=== PATIENT | male | born 1995 | race Caucasian/White ===

== ENCOUNTER 2018-05-19 12:04 | Emergency (ER) | payer BC ==
--- NOTE | 2018-05-19 12:39 | EDM.PDOC ---
ED HPI GENERAL MEDICAL PROBLEM - General Chief Complaint: Upper Extremity Injury/Pain Stated Complaint: NUMB/TINGLING LT HAND Time Seen by Provider: 05/19/18 12:19 Source of Information: Reports: Patient History Limitations: Reports: No Limitations - History of Present Illness INITIAL COMMENTS - FREE TEXT/NARRATIVE: History of present illness: [Patient has had 4 days of numbness and tingling to his left index finger and thumb that wakes him up at night. He does repetitive motions with his hands and wrist at work. Trauma. Review of systems: As per history of present illness and below otherwise all systems reviewed and negative. Past medical history: As per history of present illness and as reviewed below otherwise noncontributory. Surgical history: As per history of present illness and as reviewed below otherwise noncontributory. Social history: No reported history of drug or alcohol abuse. Family history: As per history of present illness and as reviewed below otherwise noncontributory. Physical exam: General: Well developed, well nourished in NAD HEENT: Atraumatic, normocephalic, pupils reactive, negative for conjunctival pallor or scleral icterus, mucous membranes moist, throat clear, neck supple, nontender, trachea midline. Lungs: Clear to auscultation, breath sounds equal bilaterally, chest nontender. Heart: S1S2, regular, negative for clicks, rubs, or JVD. Abdomen: NABS, Soft, nondistended, nontender. Negative for masses or hepatosplenomegaly. Negative for costovertebral tenderness. Pelvis: Stable nontender. Genitourinary: Deferred. Rectal: Deferred. Extremities: Hand Neurologically intact, Phalen and Tinel tests are both negative Atraumatic, negative for cords or calf pain. Neurovascular unremarkable. Neuro: Awake, alert, oriented. Cranial nerves II through XII unremarkable. Cerebellum unremarkable. Motor and sensory unremarkable throughout. Exam nonfocal. Skin:warm and dry Diagnostics: None Therapeutics: Cock-up splint ED Course: Unremarkable Impression: carpal tunnel syndrome by history Prescriptions: None Plan: Ibuprofen, ice, wear splint even at night, follow-up with Dr. Berry. Definitive disposition and diagnosis as appropriate pending reevaluation and review of above. Left Hand Pain Score (Numeric/FACES): 5 - Related Data Allergies Allergy/AdvReac Type Severity Reaction Status Date / Time No Known Allergies Allergy Verified 05/19/18 12:21 Home Meds: Home Meds . [No Known Home Meds] 05/19/18 [History] Past Medical History - Past Health History Medical/Surgical History: Denies Medical/Surgical History HEENT History: Reports: None Cardiovascular History: Reports: None Respiratory History: Reports: None Gastrointestinal History: Reports: None Genitourinary History: Reports: None Neurological History: Reports: None Psychiatric History: Reports: None Endocrine/Metabolic History: Reports: None Hematologic History: Reports: None Immunologic History: Reports: None Oncologic (Cancer) History: Reports: None Dermatologic History: Reports: None - Infectious Disease History Infectious Disease History: Reports: None - Past Surgical History Head Surgeries/Procedures: Reports: None Musculoskeletal Surgical History: Reports: Other (See Below) Other Musculoskeletal Surgeries/Procedures:: right elbow surgery in 2000 Social & Family History - Tobacco Use Smoking Status *Q: Never Smoker Second Hand Smoke Exposure: No - Caffeine Use Caffeine Use: Reports: None - Recreational Drug Use Recreational Drug Use: No Review of Systems - Review of Systems Review Of Systems: ROS reveals no pertinent complaints other than HPI. ED EXAM, GENERAL - Physical Exam Exam: See Below (The history of present illness) Course - Vital Signs Last Recorded V/S: Last Vital Signs Temp 97.5 F 05/19/18 12:20 Pulse 76 05/19/18 12:20 Resp 18 05/19/18 12:20 BP 113/68 05/19/18 12:20 Pulse Ox 97 05/19/18 12:20 Departure - Departure Time of Disposition: 12:38 Disposition: Home, Self-Care 01 Condition: Good Clinical Impression: Carpal tunnel syndrome Qualifiers: Laterality: left Qualified Code(s): G56.02 - Carpal tunnel syndrome, left upper limb - Discharge Information *PRESCRIPTION DRUG MONITORING PROGRAM REVIEWED*: No *COPY OF PRESCRIPTION DRUG MONITORING REPORT IN PATIENT PARUL: No Referrals: PCP,None [Primary Care Provider] - Additional Instructions: The following information is given to patients seen in the emergency department who are being discharged to home. This information is to outline your options for follow-up care. We provide all patients seen in our emergency department with a follow-up referral. The need for follow-up, as well as the timing and circumstances, are variable depending upon the specifics of your emergency department visit. If you don't have a primary care physician on staff, we will provide you with a referral. We always advise you to contact your personal physician following an emergency department visit to inform them of the circumstance of the visit and for follow-up with them and/or the need for any referrals to a consulting specialist. The emergency department will also refer you to a specialist when appropriate. This referral assures that you have the opportunity for follow-up care with a specialist. All of these measure are taken in an effort to provide you with optimal care, which includes your follow-up. Under all circumstances we always encourage you to contact your private physician who remains a resource for coordinating your care. When calling for follow-up care, please make the office aware that this follow-up is from your recent emergency room visit. If for any reason you are refused follow-up, please contact the [facility] Emergency Department at and asked to speak to the emergency department charge nurse. Wear splint, ibuprofen, ice as much as possible, follow-up with Dr. Kristi deng if symptoms worsen or change. [facility] - [facility] Professional Building [address] [place] [address], [address] [place] [address]
== END 2018-05-19 12:47 | disposition home or self-care (01) ==
LOC: MW.ED 12:04
DX: G56.02 Carpal tunnel syndrome, left upper limb (principal)
CPT/HCPCS: 99282

== ENCOUNTER 2019-07-05 10:26 | Emergency (ER) | payer BC, OTHER ==
--- NOTE | 2019-07-05 13:00 | EDM.PDOC ---
ED HPI GENERAL MEDICAL PROBLEM - General Chief Complaint: Genitourinary Problem Stated Complaint: GENITAL PAIN SINCE THIS MORNING Time Seen by Provider: 07/05/19 10:30 Source of Information: Reports: Patient History Limitations: Reports: No Limitations - History of Present Illness INITIAL COMMENTS - FREE TEXT/NARRATIVE: This is a 24-year-old male who presents the emergency room with a chief complaint of shoulder pain. Patient states he has swelling and pain in his right testicle. This is an acute incident happened today. Onset: Today Duration: Hour(s): Location: Reports: Other ( testicles) Quality: Reports: Ache Severity: Moderate Improves with: Reports: None Worsens with: Reports: None Associated Symptoms: Reports: No Other Symptoms Scrotum Pain Score (Numeric/FACES): 10 - Related Data Allergies Allergy/AdvReac Type Severity Reaction Status Date / Time No Known Allergies Allergy Verified 07/05/19 10:36 Home Meds: Home Meds Doxycycline [Vibramycin] 100 mg PO BID #20 cap 07/05/19 [Rx] Naproxen [Naprosyn] 500 mg PO Q12HR #14 tab 07/05/19 [Rx] Past Medical History - Past Health History Medical/Surgical History: Denies Medical/Surgical History HEENT History: Reports: None Cardiovascular History: Reports: None Respiratory History: Reports: None Gastrointestinal History: Reports: None Genitourinary History: Reports: None Neurological History: Reports: None Psychiatric History: Reports: None Endocrine/Metabolic History: Reports: None Hematologic History: Reports: None Immunologic History: Reports: None Oncologic (Cancer) History: Reports: None Dermatologic History: Reports: None - Infectious Disease History Infectious Disease History: Reports: None - Past Surgical History Head Surgeries/Procedures: Reports: None Neurological Surgical History: Reports: Lumbar Spine Musculoskeletal Surgical History: Reports: Other (See Below) Other Musculoskeletal Surgeries/Procedures:: right elbow surgery in 2000 Social & Family History - Tobacco Use Smoking Status *Q: Never Smoker - Caffeine Use Caffeine Use: Reports: None - Recreational Drug Use Recreational Drug Use: No ED ROS GENERAL - Review of Systems Review Of Systems: See Below Constitutional: Reports: No Symptoms HEENT: Reports: No Symptoms Respiratory: Reports: No Symptoms Cardiovascular: Reports: No Symptoms Endocrine: Reports: No Symptoms GI/Abdominal: Reports: No Symptoms : Reports: Other (Right testicular pain) Musculoskeletal: Reports: No Symptoms Skin: Reports: No Symptoms Neurological: Reports: No Symptoms Psychiatric: Reports: No Symptoms Hematologic/Lymphatic: Reports: No Symptoms Immunologic: Reports: No Symptoms ED EXAM, RENAL/ - Physical Exam Exam: See Below Exam Limited By: No Limitations General Appearance: Alert, WD/WN, No Apparent Distress Eye Exam: Bilateral Eye: PERRL Ears: Normal External Exam, Normal Canal, Normal TMs Nose: Normal Inspection, Normal Mucosa Throat/Mouth: Normal Inspection Head: Atraumatic, Normocephalic Neck: Normal Inspection, Supple Respiratory/Chest: No Respiratory Distress Cardiovascular: Normal Peripheral Pulses, Regular Rate, Rhythm (Male) Exam: Scrotum Tenderness (R), Testicular Tenderness (R). No: Scrotal Swelling, Suprapubic Fullness, Testicular Mass, Testicular Tenderness (L) Rectal (Males) Exam: Deferred Back Exam: Normal Inspection, Full Range of Motion, CVA Tenderness (R), Paraspinal Tenderness Extremities: Normal Inspection, Normal Range of Motion, No Pedal Edema, Normal Capillary Refill Neurological: Alert, Oriented, CN II-XII Intact Psychiatric: Normal Affect, Normal Mood Skin Exam: Warm, Dry, Intact Course - Vital Signs Text/Narrative:: 24-year-old gentleman presents the emergency room with acute right testicular pain. Denies trauma and denies discharge or sexually transmitted diseases. Ultrasound performed which shows a small amount of epididymitis and cyst. Assessment is epididymitis with a cyst. Last Recorded V/S: Last Vital Signs Temp 97.5 F 07/05/19 10:34 Pulse 78 07/05/19 10:34 Resp 16 07/05/19 10:34 BP 140/65 07/05/19 10:34 Pulse Ox 100 07/05/19 10:34 - Orders/Labs/Meds Orders: Active Orders 24 hr Category Date Time Status Scrotal Duplex Ltd [US] Stat Exams 07/05/19 11:04 Taken Meds: Medications Discontinued Medications Generic Name Dose Route Start Last Admin Trade Name Freq PRN Reason Stop Dose Admin Ketorolac Tromethamine 30 mg 07/05/19 13:05 Toradol IM 07/05/19 13:06 ONETIME ONE Departure - Departure Time of Disposition: 13:07 Disposition: Home, Self-Care 01 Condition: Good Clinical Impression: Epididymitis - Discharge Information Prescriptions: Naproxen [Naprosyn] 500 mg PO Q12HR #14 tab Doxycycline [Vibramycin] 100 mg PO BID #20 cap Referrals: PCP,None [Primary Care Provider] - Forms: ED Department Discharge Additional Instructions: Patient is to take his medication as prescribed Patient to follow-up with urology Sepsis Event Note - Evaluation Sepsis Screening Result: No Definite Risk - Focused Exam Vital Signs: Vital Signs Temp Pulse Resp BP Pulse Ox 07/05/19 10:34 97.5 F 78 16 140/65 100 Date Exam was Performed: 07/05/19 Time Exam was Performed: 13:07 - My Orders Last 24 Hours: My Active Orders 07/05/19 11:04 Scrotal Duplex Ltd [US] Stat - Assessment/Plan Last 24 Hours: My Active Orders 07/05/19 11:04 Scrotal Duplex Ltd [US] Stat
[2019-07-05] MEDS ORDERED: Ketorolac 30 MG/ML SDV IM ONE (13:05)
--- NOTE | 2019-07-07 15:11 | US ---
Testicular ultrasound: Multiple real-time images of the testicles were obtained. Comparison: No prior testicular exam. Findings: Testicles have a homogeneous ultrasound appearance. No intratesticular abnormality is seen. Arterial and venous blood flow are seen within both testicles. 7 mm epididymal cyst is noted on the right side with 3 mm epididymal cyst noted on the left side. Small right sided hydrocele is seen. Measurements: Right testicle: 3.4 x 2.4 x 3.8 cm Left testicle: 3.0 x 2.5 x 3.8 cm Impression: 1. Small epididymal cyst on both sides. 2. Small right sided hydrocele. 3. No intratesticular abnormality is identified. Blood flow is noted within both testicles. Diagnostic code #2 Study was dictated in MDT MTDD
== END 2019-07-05 13:51 | disposition home or self-care (01) ==
LOC: MW.ED 10:26
DX: N45.1 Epididymitis (principal)
CPT/HCPCS: 76870; 93976; 96372; 99284; J1885; 99283